=== PATIENT | female | born 2000 | race Caucasian/White ===

== ENCOUNTER 2021-06-18 08:33 | Emergency (ER) | payer MEDICAID ==
[~2021-06-18] VITALS: Ht 162.6 cm; Wt 73.0 kg
[2021-06-18] MEDS ORDERED: SKEL800 MT (10:27)
[2021-06-18] MEDS ORDERED: IBUP-2029 MT (10:27)
[2021-06-18 10:52] VITALS: BP 132/66
== END 2021-06-18 10:54 | disposition home or self-care (01) ==
LOC: ER 08:33
DX: S16.1XXA Strain of muscle, fascia and tendon at neck level, initial encounter (principal); I49.9 Cardiac arrhythmia, unspecified; X58.XXXA Exposure to other specified factors, initial encounter; Y93.89 Activity, other specified; Y92.89 Other specified places as the place of occurrence of the external cause; Y99.8 Other external cause status
CPT/HCPCS: 72040; 72070; 93005; 99284

== ENCOUNTER 2022-01-27 15:52 | Emergency (ER) | payer MEDICAID, OTHER ==
[~2022-01-27] VITALS: Ht 162.6 cm; Wt 72.0 kg
[~2022-01-27 15:52] MED LIST: IBUP-2029 MT; SKEL800 MT
[2022-01-27 16:20] VITALS: BP 121/74
[2022-01-27] MEDS ORDERED: NAPR-681 MT (17:39)
== END 2022-01-27 19:12 | disposition home or self-care (01) ==
LOC: ER 15:52
DX: M79.621 Pain in right upper arm (principal)
CPT/HCPCS: 73060; 99283

== ENCOUNTER 2023-02-02 10:42 | Emergency (ER) | payer MEDICAID, OTHER ==
[~2023-02-02] VITALS: Ht 162.6 cm; Wt 87.0 kg
[~2023-02-02 10:42] MED LIST changes: +NAPR-681 MT
[2023-02-02 10:54] VITALS: BP 135/83
[2023-02-02] MEDS ORDERED: ACETAMINOPHEN 500MG TABLET PO ONE (11:30)
[2023-02-02] MEDS ORDERED: AMOX-494 MT (12:37)
[2023-02-02] MEDS ORDERED: ACET-2708 MT (12:37)
== END 2023-02-02 12:56 | disposition home or self-care (01) ==
LOC: ER 11:19
DX: H66.92 Otitis media, unspecified, left ear (principal); R05.9 Cough, unspecified
CPT/HCPCS: 71045; 81025; 99283

== ENCOUNTER 2023-09-08 20:18 | Emergency (ER) | payer MEDICAID ==
[~2023-09-08] VITALS: Ht 162.6 cm; Wt 85.0 kg
[~2023-09-08 20:18] MED LIST changes: +ACET-2708 MT; +AMOX-494 MT
[2023-09-08 20:43] VITALS: BP 116/80; PULSE 120; RESP 16; TEMP 98.9; O2SAT 98
[2023-09-08 21:12] LABS: CLARITY URINE CLEAR (CLEAR); COLOR URINE YELLOW (YELLOW); GLUCOSE URINE NEGATIVE (NEGATIVE); KETONES URINE NEGATIVE (NEGATIVE); LEUKOCYTE ESTERASE URINE TRACE (NEGATIVE); NITRITE URINE NEGATIVE (NEGATIVE); OCCULT BLOOD URINE 1+ (NEGATIVE); PROTEIN URINE NEGATIVE (NEGATIVE); SPECIFIC GRAVITY URINE 1.025 (1.005-1.030); UROBILINOGEN URINE 0.2 E.U./dL (0.2-1.0)
[2023-09-08 21:32] LABS: BACTERIA URINE 1+; SQUAMOUS EPITHELIAL CELL URINE 1+ /lpf (RARE/1+); WBC URINE 0-2 /hpf (0-2)
[2023-09-08 21:35] LABS: BASOPHILS % 0.2 % (0.0-2.0); EOSINOPHILS % 0.7 % (0.0-5.0); HEMATOCRIT. 39.7 % (36.0-48.0); HEMOGLOBIN. 13.6 g/dL (12.0-16.0); LYMPHOCYTES % 10.5 % (20.0-50.0); MEAN CORPUSCULAR HEMOGLOBIN 31.5 pg (28.0-32.0); MEAN CORPUSCULAR HGB CONC 34.2 g/dL (31.0-37.0); MEAN CORPUSCULAR VOLUME 91.9 fL (81.0-99.0); MEAN PLATELET VOLUME 6.8 fl (7.4-10.4); MONOCYTES % 7.9 % (2.0-8.0); NEUTROPHILS % 80.7 % (40.0-76.0); PLATELET 366 x1000/uL (130-400); RED BLOOD CELL COUNT 4.31 mill/uL (4.2-5.4); RED CELL DISTRIBUTION WIDTH 13.5 % (11.6-14.6); WHITE BLOOD COUNT 7.9 x1000/uL (4.5-11.0)
[2023-09-08 21:45] LABS: HCG SCREEN NEGATIVE
[2023-09-08 21:47] LABS: ALANINE AMINOTRANSFERASE 12 IU/L (10-49); ALBUMIN 4.3 g/dL (3.2-4.8); ASPARTATE AMINOTRANSFERASE 13 IU/L (<34); BILIRUBIN TOTAL 0.5 mg/dL (0.1-1.0); CALCIUM 9.1 mg/dL (8.7-10.4); CARBON DIOXIDE 26 mEq/L (21-32); CHLORIDE 106 mEq/L (98-107); CREATININE 0.7 mg/dL (0.6-1.0); GLUCOSE 99 mg/dL (70-105); PROTEIN TOTAL 7.6 g/dL (6.0-8.3); SODIUM 139 mEq/L (136-145); TROPONIN I HIGH SENSITIVITY < 4 ng/L (3.0-34); UREA NITROGEN BLOOD 11 mg/dL (9-23)
[2023-09-08 21:51] LABS: PARTIAL THROMBOPLASTIN TIME 27.9 sec (23.4-31.0); PROTHROMBIN TIME 10.4 sec (9.6-11.0)
== END 2023-09-09 02:59 | disposition left against medical advice (07) ==
LOC: ER 20:18
DX: R07.9 Chest pain, unspecified (principal); Z53.21 Procedure and treatment not carried out due to patient leaving prior to being seen by health care provider
CPT/HCPCS: 36415; 71045; 80053; 81003; 84484; 84703; 85025; 93005; 99281